=== PATIENT | female | born 1970 | race Caucasian/White ===

== ENCOUNTER → 2018-07-22 | Outpatient (CLI) | payer BC, OTHER ==
[~2018-07-22] VITALS: Ht 170.2 cm; Wt 59.0 kg
[~2018-07-22] MED LIST: ACYCLOVIR 400400 MG PO; BACLOFEN20 MG PO; DICLOFENAC SODI75 MG PO; HYDROCODON-ACE1 EAC5 PO; HYDROCODON-ACE1 EAC7 PO; MOBIC15 MG PO; OMEGA-31000 M1 PO; TUMS PO; UNICOMPLEX M TA1 TA1 PO
--- NOTE | ~2018-07-22 | HPC ---
[facility] [place] [address] PAIN MANAGEMENT CONSULTATION Name: KAELA AGUILAR Room #: REG EDWARD Keegan#: [id number] Admission: 07/22/18 Attend Phys: Surendra Beal DO Discharge: Date of : 74 Report #: [id number] THIS REPORT FOR: //name// CC: Marian Cobb DATE OF SERVICE: 07/22/2018 CHIEF COMPLAINT: Low back pain, left lower extremity pain with paresthesias. HISTORY OF PRESENT ILLNESS: As you know, the patient is a very pleasant 47-year-old female who returns today in followup visit at our clinic at [facility] in [place]. She followed at our pain clinic at [facility] in [place] and has changed her care over to the [facility] for further treatment of lumbar radiculopathy. She indicates her pain became intolerable early 06/2018. She states she suffered no injury, no trauma or any changes in medical history since our last visit of nearly 2 years ago at [facility]. She indicates today that pain has improved slightly, but continues to be problematic over the daytime hours. She returns to discuss options for treatment for chronic lumbar radiculopathy. The patient indicates today, pain is constant and rhythmic, describes the pain as burning, shooting, pulling, sharp, stabbing, numbness and tingling, places pain at present 1/10, daily average up to 7/10 and worst pain has been is 7/10. The patient states that moving at all exacerbate symptoms, lying flat tends to improve pain as has previous epidural injections. She returns requesting an epidural injection under fluoroscopic guidance and refills of her medications. PAST MEDICAL HISTORY: None. PAST SURGICAL HISTORY: Finger surgery in 1991. SOCIAL HISTORY: The patient denies tobacco, alcohol, IV or illicit drug use. 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 She is not working, not receiving workmen's compensation nor is she trying to obtain disability benefits. She is unaccompanied today. REVIEW OF SYSTEMS: Positive for headaches, blurred vision, history of head injury and low back pain. All other review of systems negative per 12-point review of systems other than those listed in the history of present illness. Pain impact score 28/70, mild to moderate interference of daily activities secondary to pain. ALLERGIES: PENICILLIN AND GABAPENTIN. [address] [address] PAIN MANAGEMENT CONSULTATION Name: KAELA AGUILAR Room #: REG CLI Keegan#: [id number] Admission: 07/22/18 Attend Phys: Surendra Beal DO Discharge: Date of : 74 Report #: [id number] CURRENT MEDICATIONS: Meloxicam 15 mg once a day, acyclovir 400 mg once a day, diclofenac sodium 75 mg twice a day, hydrocodone 10/325 one tab every 8 hours p.r.n. for pain, baclofen 20 mg t.i.d. p.r.n. muscle spasms, omega 3 fish oil 1000 mg 2 tabs per day, multivitamin 1 tab per day and calcium carbonate 500 mg once a day. IMAGING: No new imaging available. PHYSICAL EXAMINATION: VITAL SIGNS: Blood pressure 106/63, pulse is 80, respiratory rate 14 and unlabored. The patient is 100% on room air. Height 5 feet 7 inches tall, weight 130 pounds and BMI calculated 20.4. GENERAL: Well-developed, well-nourished, well-hydrated 47-year-old female. She appears her stated age. She is placing current pain score 7/10. HEENT: Normocephalic and atraumatic. Pupils are equal, round and reactive to light. Extraocular muscles are intact. Sclerae are nonicteric without injection. NEUROLOGIC: Cranial nerves 2-12 grossly intact. Speech is fluent. The patient deemed an excellent historian. LUNGS: Clear to auscultation bilaterally, no wheeze, rhonchi or rales. CARDIOVASCULAR: Regular. No appreciable gallop and no rub. ABDOMEN: Soft, nontender, nondistended and normoactive bowel sounds. EXTREMITIES: Show no clubbing, no cyanosis and no edema. MUSCULOSKELETAL: Seated straight leg raising is negative. Supine straight leg raising mildly positive on the left. Eagle's test is negative. Modified Gaenslen's positive for axial low back pain. Ankle clonus is negative. Babinski is negative. ASSESSMENT: 1. Lumbar radiculopathy. 2. Lumbosacral spondylosis with radiculopathy. 3. Displacement of lumbar intervertebral disk with radiculopathy. 4. Lumbar degeneration. PLAN: 1. The patient has returned today in followup visit requesting epidural injection under fluoroscopic guidance. She reports good efficacy with previous epidural injection that has lasted for nearly a year and a half. Unfortunately, she has had a recurrence of symptoms in early as 06/2018. She returns today in followup visit requesting to undergo epidural injection under fluoroscopic guidance to address recurrent lumbar radicular symptoms. She has been advised risks and benefits of this procedure. These risks include but are not necessarily limited to bleeding, bruising, infection, worsening of pain, no relief of pain, also risk of temporary or permanent muscle weakness, temporary or permanent nerve damage, possible paralysis and . The patient states understood and wished to proceed. [facility] [address] [place] [address] PAIN MANAGEMENT CONSULTATION Name: KAELA AGUILAR Room #: REG EDWARD Keegan#: [id number] Admission: 07/22/18 Attend Phys: Surendra Beal DO Discharge: Date of : 74 Report #: [id number] 2. The patient was provided a prescription of meloxicam 15 mg dose one-half tab p.o. b.i.d. I have given the patient #30 tablets, 2 refills, 3 months' worth of medication. 3. The patient was provided a refill prescription on baclofen 20 mg dose 1 tab p.o. t.i.d. p.r.n. muscle spasms. I have given the patient #90, no refills. 4. The patient was provided refill prescription of her hydrocodone/acetaminophen 10/325 1 tab p.o. q. 4 hours p.r.n. for pain. I have given the patient #90 tablets, no refills. 5. We reviewed the fact that opiate medications are being used to provide analgesia adequate to support activities of daily living, not attempting to achieve a specific pain score on the 0-10 Visual Analog Scale. The current opiate medications are providing sufficient analgesia to allow the patient to participate in activities of daily living. The patient is not exhibiting any aberrant behavior suggestive of drug diversion. The patient is not having any adverse reactions to medications. The patient is not suffering from daytime somnolence or mental acuity changes. The patient is managing opiate-induced constipation with appropriate mfti-bog-bgehwso agents and dietary considerations. The patient was counseled on concern for caution with operating a motor vehicle while using opiate medications. A physical exam was performed and the patient's functional status was evaluated. All patients with back pain were advised against the bed rest greater than 4 days and were advised to return to normal activities. Pain score assessment was noted and the treatment plan was reviewed with the patient. All current medications, both prescribed and OTC were reviewed and reconciled on the electronic medical record. Tobacco screening was accomplished and smoking cessation was advised when indicated. BMI was noted and diet/exercise modification was recommended for all patients following outside normal parameters. I reviewed with the patient today their responsibilities to safeguard prescription medications, reviewed their responsibility to utilize medications only as prescribed by the physician. They are to seek and receive pain medications only from 1 physician group ( [facility]). They are to use 1 pharmacy and keep the clinic informed if they change pharmacies. Their responsibilities include making followup visits in a timely fashion and to avoid abrupt discontinuation of medication usage. Their responsibilities further include bringing their medications (bottles from the pharmacy with residual pills) to the visit for possible confirmation of pill counts and the patient understands it is their responsibility to submit to random drug screens to ensure both that the medications prescribed are present, and that no other controlled substances are present. All prescriptions provided today were generated electronically .6. The patient will return to our clinic on an as needed basis for the next in the series of epidural injections. PROCEDURE NOTE [address] [address] PAIN MANAGEMENT CONSULTATION Name: KAELA AGUILAR Room #: REG EDWARD Allison#: [id number] Admission: 07/22/18 Attend Phys: Surendra Beal DO Discharge: Date of : 74 Report #: [id number] DESCRIPTION OF PROCEDURE: L5-S1 left paramedian epidural steroid injection under fluoroscopic guidance. After obtaining written consent, the patient was taken back to fluoroscopy suite, placed in prone position with pillow under abdomen to decrease lumbar lordosis. Skin overlying lumbosacral area then prepped and draped in aseptic fashion. L5-S1 vertebral interspace identified by AP fluoroscopy. Skin and subcutaneous tissue overlying target site of injection was anesthetized with 3 mL of 1% lidocaine. A 20-gauge 3-1/2 inch Tuohy needle advanced under fluoroscopic guidance towards the epidural space using a left paramedian approach. Epidural space identified using loss of resistance to air technique. After negative aspiration for heme or cerebrospinal fluid, 1 mL of Omnipaque was injected. Lumbar epidurogram confirmed using both AP and lateral fluoroscopy. After negative aspiration for heme or cerebrospinal fluid, 5 mL of a solution containing 2 mL 40 mg per mL, 80 mg total triamcinolone, 3 mL of lidocaine 1% injected slowly. Needle retracted fdc, flushed with 1 mL of 1% lidocaine and removed. Sterile bandage placed over injection site. No new motor deficits present in the lower extremity following procedure. The patient tolerated the procedure well and carefully escorted to recovery room in stable condition. No apparent complication. After meeting discharge criteria, the patient discharged home. <ELECTRONICALLY SIGNED> By: Surendra Beal DO 07/29/18 1259 [id number] 2250 Surendra Beal DO /nt
[2018-07-22 13:27] VITALS: BP 106/63
== END | disposition home or self-care (01) ==
LOC: PAIN 07:17
DX: M51.16 Intervertebral disc disorders with radiculopathy, lumbar region (principal); M47.27 Other spondylosis with radiculopathy, lumbosacral region; G89.29 Other chronic pain; Z88.0 Allergy status to penicillin; Z98.890 Other specified postprocedural states; Z88.8 Allergy status to other drugs, medicaments and biological substances; Z79.891 Long term (current) use of opiate analgesic

== ENCOUNTER → 2019-01-13 | Outpatient (CLI) | payer BC, OTHER ==
[~2019-01-13] VITALS: Ht 170.2 cm; Wt 59.4 kg
[~2019-01-13] MED LIST changes: +MEDROLDOSEPACK PO; +NABUMETONE 500500 M1 PO
[2019-01-13 13:18] VITALS: BP 101/69
--- NOTE | 2019-01-13 13:28 | NUR ---
Pain Clinic Assessment: 1. History of Osteoarthritis: History of Rheumatoid Arthritis: 2. Height: 5 ft. 7 in. 170.2 cm. Weight: 131.0 lb. oz. 59.421 kg. Patient's BMI: 20.5 3. Vital Signs: BP: 101/69 Pulse: 78 Resp: 14 Temp: 02 Sat: 100 ECG Mon: 4. Pain Intensity: 2-9 5. Fall Risk: Dizziness: N Needs help standing or walking: N Fallen in the last 3 months: N Fall risk comments: 6. Patient on Blood Thinner: None 7. History of Hypertension: 8. Opioid Therapy greater than 6 weeks: Y Opiate Contract Signed: 9. Risk Assessment Tool Provided: 10. Functional Assessment Tool: 11. Recreational Drug Use: Never Drug Type: Tobacco Use: Never Smoker Tobacco Type: Amount or Packs/day: How Many Years: Alcohol Use: Yes Frequency: Quant:
--- NOTE | 2019-01-21 07:49 | HPC ---
[facility] [address] [place] [address] PAIN MANAGEMENT CONSULTATION Name: KAELA AGUILAR Room #: REG EDWARD MRaegan.#: [id number] Admission: 01/13/19 ������������������ Attend Phys: Surendra Beal DO Discharge: ������������������ Date of : 74 Report #: [id number] THIS REPORT FOR: //name// CC: Marian Cobb DO DATE OF SERVICE: 01/13/2019 CHIEF COMPLAINT: Low back pain. HISTORY OF PRESENT ILLNESS: As you know, the patient is a very pleasant 48-year-old female who returns today in followup visit with concern of low back pain and intermittent left lower extremity pain. She indicates today pain level of anywhere from 2-9/10 depending on activity. She states that her pain was very intense last week when she called for her appointment, it is now reduced significantly. She indicates the pain when present with sharp, constant, burning in sensation, exacerbated with movement, improves with relaxation and heat. She was originally referred to our service for condition for which she undergoes periodic epidural injections with good benefit. She has minor changes in the lumbar spine that is easily addressed with epidural injections. She made appointment today to undergo a lumbar epidural injection, but her symptoms have nearly completely resolved. She returns to discuss other options for treatment. ALLERGIES: PENICILLIN and GABAPENTIN. CURRENT MEDICATIONS: Baclofen 20 mg q. 8 hours p.r.n. for pain, hydrocodone/acetaminophen 10/325 mg 1 tab p.o. q. 8 hours p.r.n. for pain, Meloxicam 15 mg once a day, omega-3 fish oil 1000 mg a day, and multivitamin 1 tab per day. SOCIAL HISTORY: The patient denies tobacco, alcohol, IV, or illicit drug use. 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 She is unaccompanied today. IMAGING: No new imaging available. PHYSICAL EXAMINATION: VITAL SIGNS: Blood pressure 101/69, pulse 78, respiratory rate 14 and unlabored. The patient is 100% on room air. Height 5 feet 7 inches tall, weighs 131 pounds, BMI calculated 20.5. GENERAL: Well-developed, well-nourished, well-hydrated 48-year-old female appearing stated age, placing pain at present 12/07. HEENT: Normocephalic, atraumatic. Pupils equal, round, reactive to light. Extraocular muscles are intact. EXTREMITIES: Show no clubbing, no cyanosis, and no edema. [facility] [address] [place] [address] PAIN MANAGEMENT CONSULTATION Name: KAELA AGUILAR Room #: REG [facility]#: [id number] Admission: 01/13/19 ������������������ Attend Phys: Surendra Beal DO Discharge: ������������������ Date of : 74 Report #: [id number] MUSCULOSKELETAL: There is minor palpatory tenderness over the paraspinal musculature of lower lumbar spine, no spinous process tenderness. Seated straight leg raising negative. Supine straight leg raising negative. Eagle's test negative. Modified Gaenslen's positive for axial low back pain. ASSESSMENT: 1. Myofascial pain. 2. Lumbosacral spondylosis without radicular symptoms. 3. History of chronic lumbar radiculopathy. 4. Displacement of lumbar intervertebral disk without radicular symptoms. 5. Lumbar degeneration. 6. Intractable pain. PLAN: 1. The patient returns today in followup visit indicating that she had an acute exacerbation of symptoms involving low back and left buttock area. Her symptoms in distribution appeared to be related to previous evaluations, though her symptoms have resolved at this point. She is now placing pain score 2/10. We discussed with the patient options for treatment including physical therapy, stretching exercises, core strengthening, which is the gold standard treatment for myofascial symptoms and facet arthropathy pain. We also discussed possibly providing medications in case her symptoms do occur, she can take medications immediately and potentially reduce the longevity in the intensity of pain. We also discussed interventional treatment such as epidural injections, though at this point, we would recommend delaying this type of treatment as her symptoms have resolved. She is amenable to trial physical therapy and medication management. 2. The patient was provided prescription for physical therapy. She will begin twice a week for 6 weeks. She will begin this as quickly as possible to treat the low back and facet arthropathy put changes noted on imaging study. 3. The patient will be started on nabumetone 500 mg dose 1 tab p.o. t.i.d. This will be for baseline anti-inflammatory activity. I have given the patient #90 tablets, no refills. The patient was advised to take this medication with meals. She will watch for side effects of dyspepsia, worsening blood pressure, lower extremity edema. If she notes any side effects, discontinue immediately. 4. We will continue the patient on her baclofen 20 mg dose 1 tab p.o. t.i.d. p.r.n. muscle spasms. I have given the patient #90, no refills. The patient states she can take the medication without complications or side effects. 5. We have provided the patient with a refill of her [place] 10/325 1 tab p.o. q. 6 hours p.r.n. pain. I have given the patient #90 tablets, advised the patient to take this medication only when pain is intolerable, not to rely on the medication prophylactically. 6. We have provided the patient with a Medrol Dosepak. She is to take the pack as directed, when her pain intensifies and is not resolved over 2 days of rest and relaxation. I have given the Medrol Dosepak with the instructions to only take this if all other treatments have failed. There is a limited amount of [facility] [address] [place] [address] PAIN MANAGEMENT CONSULTATION Name: KAELA AGUILAR Room #: REG CL Dena.#: [id number] Admission: 01/13/19 ������������������ Attend Phys: Surendra Beal DO Discharge: ������������������ Date of : 74 Report #: [id number] Medrol Dosepak and steroid exposures that can be provided. 7. We reviewed the fact that opiate medications are being used to provide analgesia adequate to support activities of daily living, not attempting to achieve a specific pain score on the 0-10 Visual Analog Scale. The current opiate medications are providing sufficient analgesia to allow the patient to participate in activities of daily living. The patient is not exhibiting any aberrant behavior suggestive of drug diversion. The patient is not having any adverse reactions to medications. The patient is not suffering from daytime somnolence or mental acuity changes. The patient is managing opiate-induced constipation with appropriate xqry-ils-xgadbmh agents and dietary considerations. The patient was counseled on concern for caution with operating a motor vehicle while using opiate medications. A physical exam was performed and the patient's functional status was evaluated. All patients with back pain were advised against the bed rest greater than 4 days and were advised to return to normal activities. Pain score assessment was noted and the treatment plan was reviewed with the patient. All current medications, both prescribed and OTC were reviewed and reconciled on the electronic medical record. Tobacco screening was accomplished and smoking cessation was advised when indicated. BMI was noted and diet/exercise modification was recommended for all patients following outside normal parameters. I reviewed with the patient today their responsibilities to safeguard prescription medications, reviewed their responsibility to utilize medications only as prescribed by the physician. They are to seek and receive pain medications only from 1 physician group ( [facility]). They are to use 1 pharmacy and keep the clinic informed if they change pharmacies. Their responsibilities include making followup visits in a timely fashion and to avoid abrupt discontinuation of medication usage. Their responsibilities further include bringing their medications (bottles from the pharmacy with residual pills) to the visit for possible confirmation of pill counts and the patient understands it is their responsibility to submit to random drug screens to ensure both that the medications prescribed are present, and that no other controlled substances are present. All prescriptions provided today were generated electronically. 8. The patient to return to our clinic on an as needed basis. ��������������������������������������������� <ELECTRONICALLY SIGNED> ���������������������������������������� By: Surendra Beal DO ��������������������������������������������� 01/21/19 0749 1329 0230 Surendra Beal DO /nt
== END ==
LOC: PAIN 07:16
DX: M47.817 Spondylosis without myelopathy or radiculopathy, lumbosacral region (principal); M51.26 Other intervertebral disc displacement, lumbar region; M51.36 Other intervertebral disc degeneration, lumbar region; G89.4 Chronic pain syndrome; M79.18 Myalgia, other site; Z79.899 Other long term (current) drug therapy

== ENCOUNTER → 2019-04-14 | Outpatient (CLI) | payer BC, OTHER ==
[~2019-04-14] VITALS: Ht 167.6 cm; Wt 59.9 kg
[~2019-04-14] MED LIST changes: +CALCIUM 1,0001 EACH PO
--- NOTE | ~2019-04-14 | HPC ---
[facility] [place] [address] PAIN MANAGEMENT CONSULTATION Name: KAELA AGUILAR Room #: REG EDWARD Dena.#: [id number] Admission: 04/14/19 ������������������ Attend Phys: Surendra Beal DO Discharge: ������������������ Date of : 74 Report #: [id number] THIS REPORT FOR: //name// CC: Marian Cobb DATE OF SERVICE: 04/14/2019 CHIEF COMPLAINT: Low back pain. HISTORY OF PRESENT ILLNESS: As you know, the patient is a very pleasant 48-year-old female who returns today in followup visit with continued low back pain, intermittent left lower extremity pain with paresthesias. The patient is now placing pain score at 0/10. States the combination of exercise changes and the use of medication as well as changing her daily activities have improved her pain significantly. She returns today in followup visit requesting refill of medications, denying side effects of sleepiness, disorientation, confusion, mental slowing or constipation that cannot be treated with pmck-ulz-haatoig medications. The patient indicates current medical regimen utilizing nabumetone and baclofen is working very well. She returns requesting refill of these medications. She states her pain is chronic in nature. When present, it is constant, sharp and burning. Movement and wearing high heels exacerbate symptoms. Relaxation, rest and medications tend to improve pain. She returns today in followup visit with pain level at 0/10 requesting refill of medications. ALLERGIES: PENICILLIN AND GABAPENTIN. CURRENT MEDICATIONS: Calcium carbonate 1 tab per day, nabumetone 500 mg t.i.d. p.r.n., hydrocodone/acetaminophen 10/325 one tab p.o. q. 8 hours p.r.n. for pain, baclofen 20 mg p.r.n., omega-3 fish oil 1 tab per daily and multivitamin 1 tab per day. SOCIAL HISTORY: The patient denies tobacco, alcohol, IV or illicit drug use. 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 She is unaccompanied today. IMAGING: No imaging available. PHYSICAL EXAMINATION: VITAL SIGNS: Blood pressure 108/69, pulse 77, respiratory rate 16 and unlabored. The patient is 100% on room air. Height 5 feet 6 inches tall, weight 132 pounds, BMI calculated 21.3. GENERAL: Well-developed, well-nourished, well-hydrated 48-year-old female appearing stated age, pain is rated today at 0/10. [place] [address] PAIN MANAGEMENT CONSULTATION Name: KAELA AGUILAR Room #: REG [facility]#: [id number] Admission: 04/14/19 ������������������ Attend Phys: Surendra Beal DO Discharge: ������������������ Date of : 74 Report #: [id number] HEENT: Normocephalic and atraumatic. Pupils are equal, round and reactive to light. Extraocular muscles are intact. Sclerae nonicteric without injection. NEUROLOGIC: Cranial nerves 2-12 are grossly intact. Speech is fluent. EXTREMITIES: Show no clubbing, no cyanosis and no edema. MUSCULOSKELETAL: Lower extremity strength equal and symmetrical 5/5, intact to light touch from L1 through S2 dermatomes. Seated straight leg raising is negative. Supine straight leg raising is negative. Eagle's test is negative. Modified Gaenslen's positive for axial low back pain. Lumbar provocation testing is met with mild restriction of motion. No significant pain generation. ASSESSMENT: 1. Lumbosacral spondylosis without radiculopathy. 2. History of chronic lumbar radiculopathy. 3. Displacement of lumbar intervertebral disk without radicular symptoms. 4. Lumbar degeneration. 5. Myofascial pain. 6. Chronic pain. PLAN: 1. The patient has returned today in followup visit where we have spent over 24 minutes of time discussing current condition. It appears that the patient is doing very well with a combination of baclofen and nabumetone this in conjunction with adjusting her daily activities as suggested in her last visit and continued to use mindful awareness and cognitive behavioral therapy treatment options she has been able to control her pain. She returns today in followup visit stating pain level is 0/10. She is extremely pleased with response to the treatment. Returning today to discuss options on how to possibly come off medications in the future. 2. At present, I recommend the patient reduce the use of the nabumetone to 500 mg 3 times a day as needed. I do not think she needs to continue to utilize baseline medication. Adjusting the medication to p.r.n. will reduce her reliance on the therapy and may ultimately allow the patient to get off the medication entirely. We have provided the patient a prescription of the nabumetone 500 mg dose 1 tab p.o. t.i.d., #90 with 2 refills if she wishes to continue the therapy, but we do recommend she reduce the dosing if at all possible. 3. The patient is doing very well with baclofen. She is not having much in the way of side effects with the therapy. We have provided a refill of medication 20 mg dose 1 tab p.o. t.i.d. p.r.n. muscle spasms when pain becomes intense due to muscle spasming this is to be utilized. I have given her 90 tablets with 2 refills, 3 months' worth of medication at minimum. The patient was advised to continue to watch for side effects of sleepiness, disorientation, confusion and weakness with this therapy. 4. We discussed at length options for treatment utilizing cognitive behavioral therapy and adjustments in activities. She has done very well and has been very compliant with adjustments in her activity levels, exercise programs and has [facility] [address] [place] [address] PAIN MANAGEMENT CONSULTATION Name: KAELA AGUILAR [id number] Admission: 04/14/19 ������������������ Attend Phys: Surendra Beal DO Discharge: ������������������ Date of : 74 Report #: [id number] begun strengthening program through her local gym. We are very pleased with response of the patient to these more conservative treatment suggestions and recommend she continue this therapy. 5. We will see the patient back in followup visit on an as needed basis. We are pleased to see she is doing well and we wish her continued success. ��������������������������������������������� ���������������������������������������� By: ��������������������������������������������� [id number] Surendra Beal DO /nt
[2019-04-14 09:59] VITALS: BP 108/69
--- NOTE | 2019-04-14 10:02 | NUR ---
Pain Clinic Assessment: 1. History of Osteoarthritis: NONE History of Rheumatoid Arthritis: NONE 2. Height: 5 ft. 6 in. 167.6 cm. Weight: 132.0 lb. oz. 59.875 kg. Patient's BMI: 21.3 3. Vital Signs: BP: 108/69 Pulse: 77 Resp: 16 Temp: 02 Sat: 100 ECG Mon: 4. Pain Intensity: 0 5. Fall Risk: Dizziness: N Needs help standing or walking: N Fallen in the last 3 months: N Fall risk comments: 6. Patient on Blood Thinner: None 7. History of Hypertension: 8. Opioid Therapy greater than 6 weeks: Y Opiate Contract Signed: 9. Risk Assessment Tool Provided: 10. Functional Assessment Tool: 11. Recreational Drug Use: Never Drug Type: Tobacco Use: Never Smoker Tobacco Type: Amount or Packs/day: How Many Years: Alcohol Use: Yes Frequency: Quant:
== END ==
LOC: PAIN 06:44
DX: M47.817 Spondylosis without myelopathy or radiculopathy, lumbosacral region (principal); M51.26 Other intervertebral disc displacement, lumbar region; G89.29 Other chronic pain; M51.36 Other intervertebral disc degeneration, lumbar region

== ENCOUNTER → 2019-05-26 | Outpatient (CLI) | payer BC, OTHER ==
[~2019-05-26] VITALS: Ht 167.6 cm; Wt 59.1 kg
[2019-05-26 09:06] VITALS: BP 99/60
--- NOTE | 2019-05-26 09:22 | NUR ---
Pain Clinic Assessment: 1. History of Osteoarthritis: NONE History of Rheumatoid Arthritis: NONE 2. Height: 5 ft. 6 in. 167.6 cm. Weight: 130.2 lb. oz. 59.058 kg. Patient's BMI: 21.0 3. Vital Signs: BP: 99/60 Pulse: 83 Resp: 14 Temp: 02 Sat: 100 ECG Mon: 4. Pain Intensity: 3-TODAY, 5 DAILY AVG 5. Fall Risk: Dizziness: N Needs help standing or walking: N Fallen in the last 3 months: N Fall risk comments: 6. Patient on Blood Thinner: None 7. History of Hypertension: N 8. Opioid Therapy greater than 6 weeks: Y Opiate Contract Signed: 9. Risk Assessment Tool Provided: 10. Functional Assessment Tool: 11. Recreational Drug Use: Never Drug Type: Tobacco Use: Never Smoker Tobacco Type: Amount or Packs/day: How Many Years: Alcohol Use: Yes Frequency: Quant:
--- NOTE | 2019-05-27 09:04 | HPC ---
[facility] [address] [address] PAIN MANAGEMENT CONSULTATION Name: JEFFKAELA Room #: REG Nils Fernandes.#: [id number] Admission: 05/26/19 ������������������ Attend Phys: Alejandra Benton Discharge: ������������������ Date of : 74 Report #: [id number] THIS REPORT FOR: //name// CC: Alejandra Benton Tri Cobb DATE OF SERVICE: 05/26/2019 CHIEF COMPLAINT: Chronic low back pain. HISTORY OF PRESENT ILLNESS: This is a very pleasant 48-year-old female who returns to the pain clinic today for medications that she is requesting from a recent flare in her low back pain. She tells me her pain had been fairly well controlled taking baclofen and nabumetone with a very rare hydrocodone, that on 04/29/2019 she had started having a flare of her lower back pain that has been lasting almost the entire month. She tells me her back would feel like it "locks up" and therefore, she would not be able to move except lay in bed. She finally did start taking her Medrol Dosepak that she had in case of emergency on 05/18/2019 and is finally able to feel slightly better. Her pain is located in the lumbar part of her back. It radiates down both of her legs on the outer aspect to her calf, occasionally it will go down into her foot. Her right side is worse than the left. Her pain score today is a 3/10 currently, but it can daily average as 5/10. She informed me that moving and sitting are her worst times. Relaxation, lying down and using her medications or standing are better. Today, she would like to have a refill of her hydrocodone and possibly a Medrol Dosepak again to keep her out of the Emergency Room when her pain gets so bad. ALLERGIES: PENICILLIN AND GRALISE. CURRENT LIST OF MEDICATIONS: Nabumetone 500 mg b.i.d. p.r.n., baclofen 20 mg t.i.d., calcium, hydrocodone 10/325 half p.r.n., omega-3 and multivitamin. PQRS: 1. She denies any rheumatoid arthritis or osteoarthritis. 2. Height is 5 feet 6 inches, weight is 130, BMI is 21. 3. Vital signs: Blood pressure 99/60, pulse is 83, respirations 14, oxygen sat is 100%. 4. Pain score is 3/10 today with an average of 5/10. 5. Denies dizziness, does not need help walking or standing, has not fallen in the last 3 months. 6. The patient is not on any blood thinners. She has no medications for hypertension. 7. Opioid therapy is greater than 6 weeks; but an opioid signed contract is not on the chart since she takes it very sparingly. Her functional assessment is 28/70. [address] [address] PAIN MANAGEMENT CONSULTATION Name: KAELA AGUILAR Room #: REG [facility] Dena.#: [id number] Admission: 05/26/19 ������������������ Attend Phys: Alejandra Benton Discharge: ������������������ Date of : 74 Report #: [id number] 8. Recreational drug use, she denies. She is not a smoker and occasionally drinks alcohol. We did check the prescription monitoring system. The patient has filled in December from Dr. Surendra Beal for her medications. PHYSICAL EXAMINATION: GENERAL: This is a well-developed, well-nourished, well-hydrated 48-year-old female who appears her stated age, placing her current pain score at 3/10 today. She is alert and orientated. HEENT: Normocephalic, atraumatic. Pupils equal, round and reactive to light. Mucous membranes are moist. EXTREMITIES: No clubbing, no cyanosis, no edema. MUSCULOSKELETAL: Lower extremity strength is symmetrical at 5/5. Seated straight leg raising is negative. Lumbar provocation testing is met with mild restriction of motion. The patient complains of tenderness across her lumbar spine currently. ASSESSMENT: 1. Lumbosacral spondylosis without radiculopathy. 2. History of chronic lumbar radiculopathy. 3. Displacement of lumbar intervertebral disk without radicular symptoms. 4. Lumbar degeneration. 5. Myofascial pain. 6. Chronic pain. We reviewed the fact that opiate medications are being used to provide analgesia adequate to support activities of daily living, not attempting to achieve a specific pain score on the 0-10 Visual Analog Scale. The current opiate medications are providing sufficient analgesia to allow the patient to participate in activities of daily living. The patient is not exhibiting any aberrant behavior suggestive of drug diversion. The patient is not having any adverse reactions to medications. The patient is not suffering from daytime somnolence or mental acuity changes. The patient is managing opiate-induced constipation with appropriate llwb-ken-kaykmva agents and dietary considerations. The patient was counseled on concern for caution with operating a motor vehicle while using opiate medications. A physical exam was performed and the patient's functional status was evaluated. All patients with back pain were advised against the bed rest greater than 4 days and were advised to return to normal activities. Pain score assessment was noted and the treatment plan was reviewed with the patient. All current medications, both prescribed and OTC were reviewed and reconciled on the electronic medical record. Tobacco screening was accomplished and smoking cessation was advised when indicated. BMI was noted and diet/exercise modification was recommended for all patients following outside normal [facility] [address] [place] [address] PAIN MANAGEMENT CONSULTATION Name: KAELA AGUILAR Room #: REG [facility]..#: [id number] Admission: 05/26/19 ������������������ Attend Phys: Alejandra Benton Discharge: ������������������ Date of : 74 Report #: [id number] parameters. I reviewed with the patient today their responsibilities to safeguard prescription medications, reviewed their responsibility to utilize medications only as prescribed by the physician. They are to seek and receive pain medications only from 1 physician group ( [facility]). They are to use 1 pharmacy and keep the clinic informed if they change pharmacies. Their responsibilities include making followup visits in a timely fashion and to avoid abrupt discontinuation of medication usage. Their responsibilities further include bringing their medications (bottles from the pharmacy with residual pills) to the visit for possible confirmation of pill counts and the patient understands it is their responsibility to submit to random drug screens to ensure both that the medications prescribed are present, and that no other controlled substances are present. All prescriptions provided today were generated electronically. PLAN: 1. We discussed treatment options with the patient today. The patient has had a recent flare, was requiring an average of 2 pain pills a day; therefore, she has depleted her prescription for December. Prescription given today for hydrocodone 10/325, #90. 2. Medrol Dosepak was also written. The patient will keep this in case of an emergency when her back pain does flare significantly. We expressed to use extra steroids with caution and explained the side effects regarding steroid use. 3. 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 The patient verbalizes understanding. She will call for an appointment if she needs to and not take her Medrol Dosepak. 4. Dr. Surendra Beal did see the patient and collaborated care today. No prescriptions given for baclofen or nabumetone, there was plenty of refills. ��������������������������������������������� <ELECTRONICALLY SIGNED> ���������������������������������������� By: Alejandra Benton ��������������������������������������������� 05/27/19 0904 [id number] Alejandra Benton /nt
== END ==
LOC: PAIN 06:51
DX: M51.16 Intervertebral disc disorders with radiculopathy, lumbar region (principal); M47.817 Spondylosis without myelopathy or radiculopathy, lumbosacral region; M79.18 Myalgia, other site; G89.29 Other chronic pain; Z88.0 Allergy status to penicillin; Z88.8 Allergy status to other drugs, medicaments and biological substances; Z79.899 Other long term (current) drug therapy

== ENCOUNTER → 2019-06-23 | Outpatient (CLI) | payer BC, OTHER ==
[~2019-06-23] VITALS: Ht 167.6 cm; Wt 59.6 kg
[2019-06-23 08:20] VITALS: BP 110/70
--- NOTE | 2019-06-23 08:27 | NUR ---
Pain Clinic Assessment: 1. History of Osteoarthritis: NONE History of Rheumatoid Arthritis: NONE 2. Height: 5 ft. 6 in. 167.6 cm. Weight: 131.4 lb. oz. 59.603 kg. Patient's BMI: 21.2 3. Vital Signs: BP: 110/70 Pulse: 71 Resp: 14 Temp: 02 Sat: 100 ECG Mon: 4. Pain Intensity: 5 5. Fall Risk: Dizziness: N Needs help standing or walking: N Fallen in the last 3 months: N Fall risk comments: 6. Patient on Blood Thinner: None 7. History of Hypertension: N 8. Opioid Therapy greater than 6 weeks: Y Opiate Contract Signed: 9. Risk Assessment Tool Provided: 10. Functional Assessment Tool: 11. Recreational Drug Use: Never Drug Type: Tobacco Use: Never Smoker Tobacco Type: Amount or Packs/day: How Many Years: Alcohol Use: Yes Frequency: Quant:
--- NOTE | 2019-06-30 11:15 | HPC ---
[facility] [address] [place] [address] PAIN MANAGEMENT CONSULTATION Name: KAELA AGUILAR Room #: REG EDWARD Keegan#: [id number] Admission: 06/23/19 Attend Phys: Surendra Beal DO Discharge: Date of : 74 Report #: [id number] THIS REPORT FOR: //name// CC: Surendra Yap DATE OF SERVICE: 06/23/2019 CHIEF COMPLAINT: Low back pain, left lower extremity pain with paresthesias. HISTORY OF PRESENT ILLNESS: As you know, the patient is a very pleasant 48-year-old female who returns today in followup visit with recurrent low back pain, left lower extremity pain with paresthesias. The patient, as you aware, suffers from lumbar radiculopathy secondary to displacement of lumbar intervertebral disk. She had been doing very well prior to exacerbation of symptoms without inciting injury or trauma that began 3 days ago. She states her pain now at a level of 5/10. She is unable to go about her activities of daily living without significant pain interference. She returns today in followup visit requesting to undergo lumbar epidural injection under fluoroscopic guidance to address recurrent symptoms. The patient states that she has tried eela-lmj-uhavyos medications, rest, relaxation, but this did not improve symptoms. She returns to undergo epidural injection under fluoroscopic guidance in hopes of improving pain further. ALLERGIES: PENICILLIN and GRALISE. CURRENT MEDICATIONS: Nabumetone, baclofen, calcium carbonate, hydrocodone, omega-3 fish oil, multivitamin. SOCIAL HISTORY: The patient denies tobacco, alcohol, IV or illicit drug use. 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 She is working, not receiving workmen's compensation, accompanied by her present in room today. IMAGING: No new imaging available. PHYSICAL EXAMINATION: VITAL SIGNS: Blood pressure 110/70, pulse 71, respiratory rate 14 and unlabored. The patient is 100% on room air. Height 5 feet 6 inches tall, weight 131.4 pounds, BMI calculated 21.2. GENERAL: Well-developed, well-nourished, well-hydrated 48-year-old female, appearing stated age, pain is rated at 5/10. HEENT: Head normocephalic, atraumatic. Pupils equal, round, reactive to light. EXTREMITIES: Show no clubbing, no cyanosis, no edema. MUSCULOSKELETAL: The patient has palpatory tenderness over the paraspinal [facility] [address] [address] PAIN MANAGEMENT CONSULTATION Name: KAELA AGUILAR Room #: REG EDWARD [facility].#: [id number] Admission: 06/23/19 Attend Phys: Surendra Beal DO Discharge: Date of : 74 Report #: [id number] musculature of lower lumbar spine, both right and left side. No spinous process tenderness. Seated straight leg raising negative. Supine straight leg raising positive on the left. Eagle's test is negative. Modified Gaenslen's positive for axial low back pain. Ankle clonus negative. Lumbar provocation testing is met with increasing pain. There is restriction of motion to the right. This is severe in nature. Pain is elicited with this maneuver. Lateral flexion to the left intensifies pain. ASSESSMENT: 1. Symptomatic lumbar radiculopathy. 2. Displacement of lumbar intervertebral disk with radiculopathy. 3. Lumbosacral spondylosis with radiculopathy. 4. Lumbar degeneration. 5. Chronic intractable pain. PLAN: 1. The patient returns today in followup visit to undergo lumbar epidural injection under fluoroscopic guidance for recurrent lumbar radicular symptoms involving low back and left lower extremity. She indicates no injury or trauma that may have led to symptom development. She has been in her normal state of health until this incident occurred a couple days ago. She trialed conservative treatment, but this did not improve her symptoms. She returns today to undergo a lumbar epidural injection under fluoroscopic guidance. She has been advised risks and benefits of procedure, states understood and wished to proceed. 2. No medication changes made at today's visit. The patient will continue current medical therapy as previously prescribed. 3. We will see the patient back in followup visit on an as needed basis for possible next in a series of lumbar epidural injections. PROCEDURE NOTE DESCRIPTION OF PROCEDURE: L5-S1 left parasagittal epidural steroid injection under fluoroscopic guidance. After obtaining written consent, the patient was taken back to fluoroscopy suite, placed in prone position with pillow under abdomen to decrease lumbar lordosis. Skin overlying lumbosacral area then prepped and draped in aseptic fashion. L5-S1 vertebral interspace identified by AP fluoroscopy. Skin and subcutaneous tissue overlying target site injection anesthetized with 3 mL of 1% lidocaine. A 20-gauge 3-1/2 inch Tuohy needle advanced under fluoroscopic guidance towards the epidural space using left parasagittal approach. Epidural space identified using loss of resistance to air technique. After negative aspiration for heme or cerebrospinal fluid, 1 mL of Omnipaque injected. Lumbar epidurogram confirmed using both AP and lateral fluoroscopy. After negative aspiration for [address] [address] PAIN MANAGEMENT CONSULTATION Name: KAELA AGUILAR Room #: REG EDWARD Allison#: [id number] Admission: 06/23/19 Attend Phys: Surendra Beal DO Discharge: Date of : 74 Report #: [id number] heme or cerebrospinal fluid, 5 mL of a solution containing 2 mL 40 mg per mL, 80 mg total triamcinolone along with 3 mL of 1% lidocaine injected slowly. Needle then retracted senior care, flushed with 1 mL of 1% lidocaine, then removed. Sterile bandage placed over injection site. No new motor deficits present in lower extremity following procedure. The patient tolerated procedure well, carefully escorted to recovery room in stable condition. No apparent complications. After meeting discharge criteria, the patient discharged home. <ELECTRONICALLY SIGNED> By: Surendra Beal DO 06/30/19 1115 1022 [id number] Sruendra Beal DO /nt
== END | disposition home or self-care (01) ==
LOC: PAIN 06:45
DX: M51.16 Intervertebral disc disorders with radiculopathy, lumbar region (principal); M47.27 Other spondylosis with radiculopathy, lumbosacral region; G89.29 Other chronic pain; Z88.0 Allergy status to penicillin; Z88.8 Allergy status to other drugs, medicaments and biological substances; Z79.891 Long term (current) use of opiate analgesic; Z79.899 Other long term (current) drug therapy

== ENCOUNTER → 2020-10-25 | Outpatient (CLI) | payer OTHER ==
[~2020-10-25] VITALS: Ht 167.6 cm; Wt 62.5 kg
[~2020-10-25] MED LIST changes: +RELAFEN500 M1 PO
[2020-10-25 10:05] VITALS: BP 119/77
--- NOTE | 2020-10-25 10:11 | NUR ---
Pain Clinic Assessment: 1. History of Osteoarthritis: NONE History of Rheumatoid Arthritis: NONE 2. Height: 5 ft. 6 in. 167.6 cm. Weight: 137.8 lb. oz. 62.506 kg. Patient's BMI: 22.3 3. Vital Signs: BP: 119/77 Pulse: 61 Resp: 18 Temp: 02 Sat: 100 ECG Mon: 4. Pain Intensity: 3 5. Fall Risk: Dizziness: N Needs help standing or walking: N Fallen in the last 3 months: N Fall risk comments: 6. Patient on Blood Thinner: None 7. History of Hypertension: N 8. Opioid Therapy greater than 6 weeks: Y Opiate Contract Signed: 9. Risk Assessment Tool Provided: 10. Functional Assessment Tool: 11. Recreational Drug Use: Never Drug Type: Tobacco Use: Never Smoker Tobacco Type: Amount or Packs/day: How Many Years: Alcohol Use: No Frequency: Quant:
--- NOTE | 2020-10-26 07:18 | HPC ---
[facility] [address] [place] [address] PAIN MANAGEMENT CONSULTATION Name: KAELA AGUILAR Room #: REG EDWARD Keegan#: [id number] Admission: 10/25/20 Attend Phys: Alejandra Benton Discharge: Date of : 74 Report #: [id number] THIS REPORT FOR: cc: Tri Cobb Linda J. DO Hocker, Amanda CNS ~ DATE OF SERVICE: 10/25/2020 CC: Surendra Beal DO CHIEF COMPLAINT: Low back pain, left lower extremity pain and paresthesias. HISTORY OF PRESENT ILLNESS: As you know, this is a very pleasant 49-year-old female who returns to discuss medication management today. She continues to have ongoing low back pain that radiates down the outer aspect of her left leg to her foot. She reports the lumbar epidural Dr. Beal performed in 05/2019 was very beneficial in reducing her pain. She had been able to continue activity such as rock climbing and excessive exercise until Thanksgiving time where she bent over on the floor that caused significant shooting pain down her left leg. She reports that she is resting and stretching this and has been taking some vcem-aje-hajsehd anti-inflammatories. It has slowly been decreasing her pain. She had a few hydrocodone left over from her last prescription a year ago and has utilized that on a sparingly basis as well. Today, she would like refills of her medications. The patient does report that she has had significant tinnitus in her left ear with decreased hearing since her last epidural steroid injection. She is associating this ringing in her ears from her epidural. She has not sought medical attention for this. She has found ways to deal with it by listening to music and utilizing the fan to help black out the sensation in her head. ALLERGIES: PENICILLIN AND GRALISE. CURRENT LIST OF MEDICATIONS: Hydrocodone p.r.n., calcium, [place]-3 and multivitamin. PQRS: 1. She denies any osteoarthritis or rheumatoid arthritis. 2. Height is 5 feet 6 inches, weight is 137, BMI is 22. 3. Vital signs 119/77, pulse is 61, respirations 18, oxygen sat is 100. Pain score is 3/10. Fall risk, denies dizziness, does not need assistance with ambulation. Has not fallen in the last 3 months. The patient is not on any blood thinners or hypertension. She does not take opioids on a daily basis. Her functional assessment is 28/70. 4. Recreational drug use, she denies. She is not a smoker. Does not drink alcohol. According to the prescription monitoring system, her last refill of medications [address] [address] PAIN MANAGEMENT CONSULTATION Name: KAELA AGUILAR Room #: REG Nils Allison#: [id number] Admission: 10/25/20 Attend Phys: Alejandra Benton Discharge: Date of : 74 Report #: [id number] was greater than one year ago. She does take hydrocodone very sparingly. PHYSICAL EXAMINATION: GENERAL: This is alert and orientated 49-year-old who appears her stated age, placing her current pain score at 3/10 today. HEENT: Normocephalic, atraumatic. Extraocular eye muscles are intact. She is wearing a mask. EXTREMITIES: No clubbing, no cyanosis, no edema. MUSCULOSKELETAL: She has tenderness in the paraspinal musculature of her lumbar spine that does radiate down her left leg following the L5-S1 dermatomal distribution. Seated straight leg raising is negative. Modified Gaenslen's is positive for axial low back pain. Lumbar provocation testing is met with increasing pain. Her lower extremity strength is symmetrical at 5/5. ASSESSMENT: 1. Symptomatic lumbar radiculopathy. 2. Displacement of lumbar intervertebral disk with radiculopathy. 3. Lumbosacral spondylosis with radiculopathy. 4. Lumbar degeneration. 5. Chronic intractable pain. 6. Tinnitus. PLAN: 1. We discussed treatment options with the patient today. I did have Dr. Surendra Beal see the patient as well today to discuss this tinnitus that she has been experiencing for greater than one year. The patient reports it was post epidural. I encouraged her to contact an ear, nose and throat doctor as did Dr Beal. We do not believe this is associated with her epidural. The patient does not complain of dizziness cessation. She does have blurred vision, which she has had for quite some time and has had many tests performed for that. 2. We will continue hydrocodone. The patient takes this very sparingly. We have sent , #90 to her pharmacy as well as nabumetone 500 mg t.i.d., #90 with no refills. The patient takes this very sparingly as well. We encouraged her to take the anti-inflammatory every day for 1 week to see if that does decrease the inflammation that she has been experiencing since . 3. The patient is seen in collaboration with Dr. Surendra Beal who did see the patient as well today. She will follow up as needed. <ELECTRONICALLY SIGNED> By: Alejandra Benton 10/26/20 0718 [id number] Alejandra Benton /leslie
== END ==
LOC: PAIN 10-18 10:31
PROVIDERS: ATTEND Clinical Nurse Specialist Adult Health
DX: M51.36 Other intervertebral disc degeneration, lumbar region (principal); M79.605 Pain in left leg; R20.2 Paresthesia of skin; M47.27 Other spondylosis with radiculopathy, lumbosacral region; G89.29 Other chronic pain; H93.19 Tinnitus, unspecified ear

== ENCOUNTER → 2021-11-21 | Outpatient (CLI) | payer OTHER ==
[~2021-11-21] VITALS: Ht 167.6 cm; Wt 63.3 kg
[~2021-11-21] MED LIST changes: +BACLOFEN 10MG T10 MG PO; +BACLOFEN5 MG PO
[2021-11-21 12:54] VITALS: BP 126/71
--- NOTE | 2021-11-21 13:03 | NUR ---
Pain Clinic Assessment: 1. History of Osteoarthritis: NONE History of Rheumatoid Arthritis: NONE 2. Height: 5 ft. 6 in. 167.6 cm. Weight: 139.6 lb. oz. 63.322 kg. Patient's BMI: 22.5 3. Vital Signs: BP: 126/71 Pulse: 69 Resp: 20 Temp: 02 Sat: 99 ECG Mon: 4. Pain Intensity: 8 5. Fall Risk: Dizziness: N Needs help standing or walking: N Fallen in the last 3 months: N Fall risk comments: 6. Patient on Blood Thinner: None 7. History of Hypertension: N 8. Opioid Therapy greater than 6 weeks: Y Opiate Contract Signed: 9. Risk Assessment Tool Provided: 10. Functional Assessment Tool: 11. Recreational Drug Use: Never Drug Type: Tobacco Use: Never Smoker Tobacco Type: Amount or Packs/day: How Many Years: Alcohol Use: No Frequency: Quant:
--- NOTE | 2021-11-22 08:18 | HPC ---
[facility] [place] [address] PAIN MANAGEMENT CONSULTATION Name: KAELA AGUILAR Room #: REG EDWARD Dena.#: [id number] Admission: 11/21/21 Attend Phys: Surendra Beal DO Discharge: Date of : 74 Report #: [id number] THIS REPORT FOR: cc: Tri Cobb,Surendra Naranjo DO ~ cc: Tri Cobb DO DATE OF SERVICE: 11/21/2021 REFERRING PHYSICIAN: Dr. Tri Cobb CHIEF COMPLAINT: Low back pain, bilateral lower extremity pain. HISTORY OF PRESENT ILLNESS: As you know, the patient is a very pleasant 49-year-old female returning in followup visit to undergo lumbar epidural injection under fluoroscopic guidance. The patient reports recurrence of symptoms that began approximately a week ago. 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 She "feels locked up." She has trialled conservative treatment with rest, relaxation and rbua-zcm-dtjlyrh medications without benefit. She has restarted her hydrocodone that she received in prescription form 1 year ago and has noted some benefit with this medication, but returned today to trial an epidural injection. She denies any other specific injury or trauma that may have led to symptom development. ALLERGIES: PENICILLIN. CURRENT MEDICATIONS: Hydrocodone 10/325 one tab p.o. q. 6 hours p.r.n. for pain, calcium carbonate 1 tab per day, omega-3 fish oil 1 tab per day, multivitamin 1 tab per day. SOCIAL HISTORY: The patient denies tobacco, alcohol or IV illicit drug use. She is working, not receiving workmen's compensation, accompanied by her present in room today. IMAGING: No new imaging available. PHYSICAL EXAMINATION: VITAL SIGNS: Blood pressure 126/71, pulse 69, respiratory rate 20, unlabored. The patient 99% on room air. Height 5 feet 6 inches tall, weight 139.6 pounds, BMI calculated 22.5. GENERAL: Well-developed, well-nourished, well-hydrated 49-year-old female appearing stated age, pain is rated today around 8/10. HEENT: Normocephalic, atraumatic. Pupils equal, round and responsive. She is wearing a mask in compliance with COVID-19 regulations and hospital policies. EXTREMITIES: Show no clubbing, no cyanosis. No appreciable edema. [facility] [address] [place] [address] PAIN MANAGEMENT CONSULTATION Name: KAELA AGUILAR Room #: REG [facility].#: [id number] Admission: 11/21/21 Attend Phys: Surendra Beal DO Discharge: Date of : 74 Report #: [id number] MUSCULOSKELETAL: Lower extremity strength equal and symmetrical 5/5. Slight giveaway strength noted with hip flexion, knee extension on the left when compared to the right. Seated straight leg raising is negative. Supine straight leg raising is positive on the left, negative right. Ankle clonus negative. Babinski is negative. Palpatory tenderness over the paraspinal musculature. No spinous process tenderness. ASSESSMENT: 1. Symptomatic lumbar radiculopathy. 2. Displacement of lumbar intervertebral disk with radiculopathy. 3. Lumbosacral spondylosis with radiculopathy. 4. Lumbar degeneration. 5. Chronic intractable pain. PLAN: 1. The patient returns today in followup visit requesting a lumbar epidural injection under fluoroscopic guidance. She notes excellent benefit with previous epidural injection reporting up to 90% improvement in overall pain until just recently where her symptoms reoccurred upon bending over to lift up some socks. She returns requesting a lumbar epidural injection today. She has been advised risks and benefits, states understood and wished to proceed. 2. The patient was provided a prescription of a Medrol Dosepak. If she does choose to utilize medication., I have requested the patient contact our clinic. She should not use that medication in the next 2 weeks. The Medrol Dosepak was sent to local pharmacy. 3. The patient was provided prescription of baclofen 10 mg dose 1 tab p.o. t.i.d. I have given the patient #90 tablets, 2 refills, 3 months' worth of medication. Prescriptions sent via e-scribe to local pharmacy. 4. The patient was provided a prescription of hydrocodone 10/325, one tab every 6 hours p.r.n. for pain, given the patient #120 tablets. The patient was advised that the pharmacist would only release 7 days' worth of medication as this pharmacist is misinterpreting the law SB 826 in [place]. This indicates that medication should only be released for 7 days on acute phase pain issues. This is not a acute phase problem. This is a chronic phase problem. This misunderstanding was called to the attention of the pharmacist and another prescription was sent to fill #120 tablet prescription and that was sent to local pharmacy. 5. We did review the patient's PDMP. There is no concerning entries on the [place] and [place] reports. 6. We will see the patient back in followup visit on an as needed basis for the next in the series of lumbar epidural injections. I am hopeful the patient will do well with this injection. PROCEDURE NOTE. DESCRIPTION OF PROCEDURE: L5-S1 interlaminar epidural steroid injection under [facility] [address] [place] [address] PAIN MANAGEMENT CONSULTATION Name: KAELA AGUILAR Room #: REG CL Keegan#: [id number] Admission: 11/21/21 Attend Phys: Surendra Beal DO Discharge: Date of : 74 Report #: [id number] fluoroscopic guidance. After obtaining written consent, the patient was taken back to fluoroscopy suite, placed in prone position with pillow under abdomen to decrease lumbar lordosis. Skin overlying lumbosacral area prepped and draped in aseptic fashion. The L5-S1 vertebral interspace identified by AP fluoroscopy. Skin and subcutaneous tissue overlying target site injection anesthetized with 3 mL 1% lidocaine. A 20 gauge 3-1/2 inch Tuohy needle advanced under fluoroscopic guidance towards the epidural space using a right parasagittal approach. Epidural space identified using loss of resistance to air technique. After negative aspiration for heme or cerebrospinal fluid, 1 mL of Omnipaque injected. Lumbar epidurogram was confirmed using both AP and lateral fluoroscopy. After negative aspiration for heme or cerebrospinal fluid, 5 mL solution containing 2 mL 40 mg per mL 80 mg total triamcinolone along with 3 mL of lidocaine, 1% injected slowly. Needle retracted assisted flushed with 1 mL of 1% lidocaine and removed. Sterile bandage placed over injection site. No new motor deficits present in lower extremity following procedure. The patient tolerated the procedure well, carefully escorted to recovery room in stable condition. No apparent complications. After meeting discharge criteria, the patient discharged home. <ELECTRONICALLY SIGNED> By: Surendra Beal DO 11/22/21 0818 [id number] Surendra Beal DO /nt
== END | disposition home or self-care (01) ==
LOC: PAIN 08:30
PROVIDERS: ATTEND Anesthesiology Pain Medicine
DX: M51.16 Intervertebral disc disorders with radiculopathy, lumbar region (principal); M47.27 Other spondylosis with radiculopathy, lumbosacral region; G89.29 Other chronic pain; Z98.890 Other specified postprocedural states; Z79.899 Other long term (current) drug therapy; Z88.0 Allergy status to penicillin